=== PATIENT | female | born 1995 | race Caucasian/White ===

== ENCOUNTER 2017-02-15 18:36 | Emergency (ER) | payer OTHER ==
--- NOTE | ~2017-02-15 | CR72 ---
[facility] A Service of [facility] & [facility] RADIOLOGY TEXT RESULTS PATIENT: ROCKY BONILLA LOCATION: [place] : [birth year] UNIT #: [id number] AGE: [address]: Brianda Garnica APRN SEX: F ORDER DR: [id number] [facility] [address]. [place], [place] [address] [id number] MR#: [id number] Acc #: [id number] NAME: ROCKY BONILLA. : 1995 SEX: F STUDY DATE/TIME: 02/15/2017 21:12 UNIT: [facility] ROOM: STUDY DESCRIPTION: CR Chest Single View Portable Attending Physician: Brianda Garnica A.P.R.N. Ordering Physician: Brianda Garnica A.P.R.N. Primary Care Physician: Jorge Bella M.D. MEDICAL IMAGING REPORT This report is preliminary unless electronic signature is present EXAM Portable chest HISTORY Chest pain and shortness of air today. FINDINGS A single AP portable view of the chest shows both lungs to be clear. The heart is normal in size. The mediastinal contour is normal. No significant bone abnormalities are seen. IMPRESSION Normal portable chest. Dictated by... Michael Thomas M.D. THIS IS AN ELECTRONICALLY VERIFIED REPORT Michael Thomas M.D. at 02/16/2017 2:59 PM DFL/rnr TD: 02/16/2017 03:48 JOB #: [id number] MEDICAL IMAGING REPORT Page 1 of 1 COPY
--- NOTE | ~2017-02-15 | EKG ---
PATIENT: ROCKY BONILLA UNIT #: [id number] Ventricular Rate: 79 BPM Atrial Rate: 79 BPM P-R Interval: 146 ms QRS Duration: 78 ms Q-T Interval: 402 ms QTC Calculation(Bezet): 460 ms P Cobalt: 29 degrees Calculated R Cobalt: 24 degrees Calculated T Cobalt: 22 degrees Diagnosis Line: Normal sinus rhythm Diagnosis Line: Normal ECG Diagnosis Line: No previous ECGs available Diagnosis Line: Confirmed by HELDER HOLLY MD ([id number]) on Diagnosis Line: 02/18/2017 8:33:56 AM INTERPRETING MD: ELAYNE KRISHNAN
[~2017-02-15 18:36] MED LIST: AFRIN15 M1 NS; ALPRAZOLAM PO; BC PILL PO; BENTYL10 MG PO; FALMINA1 EACH PO; FLEXERIL10 MG PO; LEVSIN0.125 M1 DOB; OMEPRAZOLE40 MG PO; PRILOSEC40 MG PO; SUDAFED30 M1 PO; VIBRAMYCIN100 M1 PO; VOLTAREN75 MG PO; ZANTAC PO; ZOFRAN ODT4 MG PO; [UNRECOGNIZED DRUG - OTHER] PO
[2017-02-15 21:05] LABS: URINE SOURCE CLEAN CATCH
[2017-02-15 21:16] LABS: POC - CKMB <1.0 ng/mL (0.0-7.9); POC - TROPONIN <0.05 ng/mL (<=0.05)
[2017-02-15 21:24] LABS: BASOPHIL# 0.1 X10e3 (0-0.3); BASOPHIL% 1.1 % (0-2.5); EOSINOPHIL# 0.3 X10e3 (0-0.7); HEMATOCRIT 40.2 % (35.0-45.0); HEMOGLOBIN 13.2 gm/dL (12.0-16.0); LYMPHOCYTE# 4.7 X10e3 (1.0-3.5); LYMPHOCYTE% 37.2 % (17.0-45.0); MEAN CELL VOLUME 89.6 FL (83-96); MEAN CORPUSCULAR HEMOGLOBIN 29.4 PG (28-34); MEAN CORPUSCULAR HGB CONC 32.7 g/dL (30-36); MONOCYTE# 0.8 X10e3 (0-1.0); MONOCYTE% 6.4 % (3.0-12.0); NEUTROPHIL# 6.7 X10e3 (1.5-7.1); NEUTROPHIL% 53.3 % (40-75); PLATELET COUNT 251 X10e3 (140-420); RED BLOOD COUNT 4.49 X10e (3.90-5.30); RED CELL DISTRIBUTION WIDTH 13.7 % (11.0-15.5); WHITE BLOOD COUNT 12.6 X10e3 (4.0-10.5)
[2017-02-15 21:26] LABS: DIFF IND NO
[2017-02-15 21:30] LABS: URINE APPEARANCE CLEAR; URINE BILIRUBIN NEG (NEG); URINE BLOOD NEG (NEG); URINE COLOR YELLOW; URINE GLUCOSE NEG (NEG); URINE KETONE NEG (NEG); URINE LEUKOCYTE ESTERASE NEG (NEG); URINE NITRATE NEG (NEG); URINE PROTEIN NEG (NEG); URINE UROBILINOGEN 0.2 MG/DL (NEG)
[2017-02-15 21:33] LABS: CULTURE INDICATED? NO
[2017-02-15 21:44] LABS: AMPHETAMINE NEG (NEG); BARBITURATES NEG (NEG); BENZODIAZEPINES NEG (NEG); COCAINE NEG (NEG); MARIJUANA NEG (NEG); OPIATES NEG (NEG); TRICYCLIC ANTIDEPRESSANTS NEG (NEG); U METHADONE NEG (NEG)
[2017-02-15 21:48] LABS: BUN/CREATININE RATIO 17.14; CALCIUM SERUM 8.4 mg/dL (8.4-10.2); CREATININE SERUM 0.7 mg/dL (0.6-1.4); GLOM FILT RATE Estimated 122.1 mL/min (>60); POTASSIUM 3.4 mmol/L (3.5-5.1)
== END 2017-02-15 22:35 | disposition home or self-care (01) ==
LOC: CED 18:36 → CFTX 20:26 → CED 20:26 → CFTX 22:35
PROVIDERS: Nurse Practitioner
DX: F41.9 Anxiety disorder, unspecified (principal); K21.9 Gastro-esophageal reflux disease without esophagitis; F17.200 Nicotine dependence, unspecified, uncomplicated
CPT/HCPCS: 36415; 71010; 80048; 80307; 81003; 82553; 82947; 84484; 84703; 85025; 93005; 96374; 96375; 99284; J1885